=== PATIENT | female | born 1955 | race Caucasian/White ===

== ENCOUNTER → 2017-06-16 | Outpatient (CLI) | payer MEDICARE ==
[2017-06-16 13:54] LABS: BUN 9 mg/dL (7-18)
[2017-06-16 13:55] LABS: GFR (ESTIMATED) 42 ML/MIN (59-)
[2017-06-16 13:58] LABS: HEMOGLOBIN 12.4 g/dL (12.2-16.2); LYMPH # 2.3 K/mm3 (0.7-4.5); LYMPH % 39.8 % (10-50.0)
[2017-06-17 16:41] LABS: Antinuclear Antibodies, IFA Negative (.)
== END ==
LOC: CARL-LAB 08:34
PROVIDERS: Nurse Practitioner Family
DX: L40.9 Psoriasis, unspecified (principal); E78.5 Hyperlipidemia, unspecified; E03.9 Hypothyroidism, unspecified

== ENCOUNTER → 2017-06-18 | Outpatient (CLI) | payer MEDICARE ==
--- NOTE | 2017-06-18 15:19 | RADIOLOGY REPORT PS360 ---
BONE DENSITOMETRY(HIP:LT SPINE HISTORY: POST MENOAUSAL ORDERING PHYSICIAN: Manish Suero MD PATIENT AGE: 61 years COMPARISON: None FINDINGS: The BMD measured at the right femoral neck is 0.902 g/cm squared with a T score of -1.0. This is considered normal according to the World Health Organization criteria. Fracture risk is low. The mean density lumbar spine has a T score of -0.3 which is normal IMPRESSION: Normal bone density. Recommend follow-up exam June 2019
== END ==
LOC: RAD 13:13
DX: Z78.0 Asymptomatic menopausal state (principal); Z13.820 Encounter for screening for osteoporosis